=== PATIENT | male | born 1995 | race Hispanic/Latino ===

== ENCOUNTER → 2021-04-29 | Outpatient (CLI) | payer OTHER | END | disposition home or self-care (01) | LOC: DTH 09:58 → EDUNIT# 10:00 | PROVIDERS: ATTEND Surgery | DX: G47.33 Obstructive sleep apnea (adult) (pediatric) (principal); E11.9 Type 2 diabetes mellitus without complications; K76.0 Fatty (change of) liver, not elsewhere classified; K21.9 Gastro-esophageal reflux disease without esophagitis; E66.01 Morbid (severe) obesity due to excess calories | CPT/HCPCS: 97803 ==

== ENCOUNTER → 2021-06-25 | Outpatient (CLI) | payer OTHER | END | disposition home or self-care (01) | LOC: EDUNIT# 06-20 13:00 → DTH 10:44 | PROVIDERS: ATTEND Surgery | DX: Z71.3 Dietary counseling and surveillance (principal); G47.33 Obstructive sleep apnea (adult) (pediatric); E11.9 Type 2 diabetes mellitus without complications; K21.9 Gastro-esophageal reflux disease without esophagitis; K76.0 Fatty (change of) liver, not elsewhere classified; E66.01 Morbid (severe) obesity due to excess calories; Z68.43 Body mass index [BMI] 50.0-59.9, adult | CPT/HCPCS: 97803 ==

== ENCOUNTER 2021-09-16 06:43 | Day surgery (SDC) | payer OTHER ==
[2021-09-16] VITALS (9 sets, daily range): BP systolic 109–130; BP diastolic 60–77
[~2021-09-16] VITALS: Ht 180.3 cm; Wt 174.2 kg
[2021-09-16] MEDS ORDERED: 0.9%NACL 1000ML 1,000 ML IV ONE (07:17)
[2021-09-16] MEDS ORDERED: PROPOFOL 10 MG/ML 20ML VIAL IV ONE ×2 (08:30→08:45)
== END 2021-09-16 09:25 | disposition home or self-care (01) ==
LOC: DAH 06:43 → ENDO 06:43
PROVIDERS: ATTEND Surgery
DX: K21.00 Gastro-esophageal reflux disease with esophagitis, without bleeding (principal); E11.9 Type 2 diabetes mellitus without complications; E66.01 Morbid (severe) obesity due to excess calories; Z68.43 Body mass index [BMI] 50.0-59.9, adult; Z79.899 Other long term (current) drug therapy; Z20.822 Contact with and (suspected) exposure to COVID-19
CPT/HCPCS: 43239; 71045; 82948; 87635; 93005; A4215 ×2; A4221; A4222; A4223; A4606; A4620; A4663; C9803; J2704 ×2; J7030

== ENCOUNTER 2021-10-17 15:00 | Inpatient (IN) | payer OTHER ==
[~2021-10-17] VITALS: Ht 175.3 cm; Wt 59.9 kg
[2021-10-17 14:26] LABS: BASOPHILS % (AUTO) 0.3 % (0.0-5.0); EOSINOPHILS % (AUTO) 1.4 % (0.0-8.0); HEMATOCRIT 48.1 % (42-54); LYMPHOCYTES % (AUTO) 31.1 % (21.0-51.0); MEAN CORPUSCULAR HEMOGLOBIN 29.1 pg (27.0-33.0); MEAN CORPUSCULAR HGB CONC 33.3 g/dL (32.0-36.0); MEAN CORPUSCULAR VOLUME 87.6 fL (79-99); MONOCYTES % (AUTO) 9.4 % (3.0-13.0); NEUTROPHILS % (AUTO) 57.7 % (40.0-77.0); PLATELET COUNT (AUTO) 223 K/uL (130-400); RED BLOOD CELL COUNT(AUTO) 5.49 MIL/uL (4.50-6.20); RED CELL DISTRIBUTION WIDTH 13.4 % (11.0-15.5); WHITE BLOOD COUNT (AUTO) 7.2 K/uL (4.8-10.8)
[2021-10-17 14:41] LABS: CREATININE 0.6 mg/dL (0.5-1.5); INR 1.05 (0.85-1.15); POTASSIUM 3.3 mmol/L (3.5-5.1); PROTHROMBIN TIME 11.4 SEC (9.6-11.6)
[2021-10-17 14:42] LABS: PARTIAL THROMBOPLASTIN TIME 28.6 SEC (26.3-35.5)
[2021-10-18 09:23] VITALS: BP 151/82
[2021-10-21] VITALS (22 sets, daily range): BP systolic 130–155; BP diastolic 64–85
[2021-10-21] MEDS: CEFAZOLIN SODIUM 1 GM VIAL IVP SCH ×4 (06:00→20:06)
[2021-10-21] MEDS ORDERED: 0.9%NACL 1000ML 1,000 ML IV ONE (09:37)
[2021-10-21] MEDS ORDERED: SCOPOLAMINE HYDROBROMIDE 1 EACH ADH..PATCH TD ONE (10:30)
[2021-10-21] MEDS ORDERED: DEXMEDETOMIDINE HCL 200 MCG/2 ML VIAL IV ONE (10:44)
[2021-10-21] MEDS ORDERED: MAGNESIUM SULFATE 1 GM/2 ML VIAL ONE (10:44)
[2021-10-21] MEDS ORDERED: LIDOCAINE PF 100MG/5ML (2%) SYRINGE 5ML ONE (10:48)
[2021-10-21] MEDS ORDERED: SUCCINYLCHOLINE CHLORIDE 20 MG/ML 10 ML VIAL ONE (10:48)
[2021-10-21] MEDS ORDERED: PROPOFOL 10 MG/ML 20ML VIAL IV ONE ×2 (10:48→10:55)
[2021-10-21] MEDS ORDERED: ONDANSETRON 4MG INJ ONE (10:48)
[2021-10-21] MEDS ORDERED: FENTANYL CITRATE PF 50 MCG/1 ML 5ML AMP IV ONE (10:49)
[2021-10-21] MEDS ORDERED: ROCURONIUM 10MG/1ML SYR 10 MG/ML ML ONE ×2 (10:49→11:17)
[2021-10-21] MEDS ORDERED: MIDAZOLAM HCL 1 MG/ML 2ML VIAL ONE (10:50)
[2021-10-21] MEDS ORDERED: BUPIVACAINE/PF 0.5% 10ML VIAL ONE (10:59)
[2021-10-21] MEDS ORDERED: SCOPOLAMINE HYDROBROMIDE 1 EACH ADH..PATCH TD SCH (11:00)
[2021-10-21] MEDS ORDERED: EPHEDRINE SULFATE 50 MG/ML AMPULE ONE (11:31)
[2021-10-21] MEDS ORDERED: NEOSTIGMINE 5MG/5ML SYR IV ONE (12:31)
[2021-10-21] MEDS ORDERED: GLYCOPYRROLATE 1 MG/5 ML SYRINGE ONE (12:31)
[2021-10-21] MEDS ORDERED: MORPHINE 5 MG/ML VIAL (5MG OR GREATER DOSE) IVP PRN (13:30)
[2021-10-21] MEDS ORDERED: ONDANSETRON 4MG INJ IVP PRN (13:30)
[2021-10-21] MEDS: LACTATED RINGERS 1000ML 1,000 ML IV SCH ×3 (13:55→21:47)
[2021-10-21] MEDS: KETOROLAC 30MG VIAL (30MG/ML) IVP PRN (16:42)
[2021-10-21] MEDS: FAMOTIDINE 20MG VIAL IV SCH (20:06)
[2021-10-21] MEDS: ENOXAPARIN SODIUM 30 MG/0.3 ML SQ SCH (20:08)
[2021-10-22] VITALS: BP 161/68
[2021-10-22 03:42] LABS: BASOPHILS % (AUTO) 0.1 % (0.0-5.0); HEMATOCRIT 42.8 % (42-54); MEAN CORPUSCULAR HEMOGLOBIN 28.9 pg (27.0-33.0); MEAN CORPUSCULAR HGB CONC 33.6 g/dL (32.0-36.0); MEAN CORPUSCULAR VOLUME 85.9 fL (79-99); MONOCYTES % (AUTO) 8.6 % (3.0-13.0); NEUTROPHILS % (AUTO) 80.9 % (40.0-77.0); PLATELET COUNT (AUTO) 240 K/uL (130-400); RED BLOOD CELL COUNT(AUTO) 4.98 MIL/uL (4.50-6.20); RED CELL DISTRIBUTION WIDTH 13.3 % (11.0-15.5); WHITE BLOOD COUNT (AUTO) 16.4 K/uL (4.8-10.8)
[2021-10-22 03:54] LABS: CREATININE 0.8 mg/dL (0.5-1.5); POTASSIUM 4.1 mmol/L (3.5-5.1)
[2021-10-22 04:00] VITALS: BP 140/68
[2021-10-22] MEDS: LACTATED RINGERS 1000ML 1,000 ML IV SCH (04:15)
[2021-10-22 07:35] VITALS: BP 131/74
[2021-10-22] MEDS: FAMOTIDINE 20MG VIAL IV SCH (07:46)
[2021-10-22] MEDS: ENOXAPARIN SODIUM 30 MG/0.3 ML SQ SCH (07:47)
[2021-10-22] MEDS: KETOROLAC 30MG VIAL (30MG/ML) IVP PRN (08:53)
== END 2021-10-22 13:00 | disposition home or self-care (01) | DRG 621 ==
LOC: EDSTATUS 10-18 11:00 → DAHIP 10-21 08:55 → 4BH 10-21 13:26
PROVIDERS: ADMIT Surgery; ATTEND Surgery
PROC: 0D164ZA Bypass Stomach to Jejunum, Percutaneous Endoscopic Approach (ICD-10-PCS; principal; 2021-10-21 10:47)
DX: E66.01 Morbid (severe) obesity due to excess calories (principal); E11.9 Type 2 diabetes mellitus without complications; K21.9 Gastro-esophageal reflux disease without esophagitis; Z20.822 Contact with and (suspected) exposure to COVID-19; Z68.1 Body mass index [BMI] 19.9 or less, adult
CPT/HCPCS: 36415; 43235; 71045; 80048; 82948; 85025; 85610; 85730; 86850; 86900; 86901; 87635; 93005; G0378; J0330; J0690; J1650; J1885; J2001; J2250; J2270; J2405; J2704; J2710; J3010; J3475; J3490; J7030; J7120